=== PATIENT | male | born 1960 | race Caucasian/White ===

== ENCOUNTER 2018-12-13 02:09 | Emergency (ER) | payer OTHER, BC ==
[~2018-12-13] VITALS: Ht 185.4 cm; Wt 101.2 kg
[2018-12-13 03:05] LABS: ABSOLUTE NEUTROPHILS 10.7 thou/uL (1.4-8.2); BASOPHILS 0.4 % (0.0-2.0); EOSINOPHILS 0.4 % (0.0-3.0); HEMATOCRIT 42.8 % (42.0-52.0); LYMPHOCYTES 7.1 % (24.0-44.0); MCH 30.9 pg (26.0-34.0); MCV 88.4 fL (80.0-100.0); MONOCYTES 6.7 % (1.0-8.0); PLATELET COUNT 219 thou/uL (150-400); POLYS 85.4 % (36.0-66.0); RBC 4.85 mil/uL (4.50-6.00); RDW 13.6 % (10.5-14.5); WBC 12.5 thou/uL (4.0-11.0)
[2018-12-13 03:17] LABS: ANION GAP 15 mmol/L (7-16); BUN 40 mg/dL (7-18); CALCIUM 9.3 mg/dL (8.5-10.1); CHLORIDE 97 mmol/L (98-107); CO2 20 mmol/L (21-32); CREATININE 1.5 mg/dL (0.7-1.3); GLUCOSE 271 mg/dL (74-106); POTASSIUM 3.9 mmol/L (3.5-5.1); SODIUM 132 mmol/L (136-145)
[2018-12-13 03:29] LABS: ALBUMIN 4.3 g/dL (3.4-5.0); LIPASE 389 U/L (73-393); SGOT 23 U/L (15-37); SGPT 31 U/L (30-65); TOTAL BILIRUBIN 1.2 mg/dL (<0.1-1.0); TOTAL PROTEIN 8.2 g/dL (6.4-8.2); TROPONIN-I <0.06 ng/mL (<0.06)
[2018-12-13 05:03] LABS: URINE CLARITY TURBID; URINE COLOR RED
[2018-12-13 05:05] LABS: CASTS None Seen /LPF (None Seen); MUCUS None Seen strn/LPF (None Seen); SQUAMOUS None Seen /LPF (0-3)
[2018-12-13 05:06] LABS: BACTERIA-REFLEX None Seen /HPF (None Seen); CRYSTALS None Seen /LPF (None Seen); URINE RBC >20 Many /HPF (0-2); URINE WBC-REFLEX 6-15 Few /HPF (0-5)
[2018-12-13] MEDS ORDERED: IBU600 MG PO (07:28)
[2018-12-13] MEDS ORDERED: FLOMAX0.4 MG PO (07:28)
[2018-12-13] MEDS ORDERED: TRULICITY1.5 MG/0.5 SUBLING (07:28)
[2018-12-13] MEDS ORDERED: LISINOPRIL20 MG PO (07:29)
[2018-12-13] MEDS ORDERED: INVOKANA300 MG PO (07:29)
[2018-12-13] MEDS ORDERED: HYZAAR 100-251 EACH PO (07:29)
[2018-12-13] MEDS ORDERED: GLUCOPHAGE XR500 MG PO (07:29)
--- NOTE | 2018-12-13 08:58 | EKG ---
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: [place] : 1960 Requested By: Charo Bunn Order Number: [id number] MD: Lei Rodriguez Measurements Intervals [place] Rate: 119 P: 14 MS: 157 QRS: 25 QRSD: 107 T: -9 QT: 316 QTc: 445 Interpretive Statements Sinus tachycardia Premature supraventricular complexes Borderline T abnormalities, inferior leads No previous ECG available for comparison Electronically Signed On 12-13-2018 8:58:12 CDT by Lei Rodriguez [email or web address] ��������������������������������������������� <ELECTRONICALLY SIGNED> ���������������������������������������� By: Lei Rordiguez MD, [facility] ��������������������������������������������� 12/13/18 [id number] Lei Rodriguez MD, FACC /EPI
[2018-12-13 10:48] VITALS: BP 131/73
== END 2018-12-13 10:49 | disposition short-term general hospital (02) ==
LOC: ER 02:09
PROVIDERS: Student in an Organized Health Care Education/Training Program
DX: N17.9 Acute kidney failure, unspecified (principal); N13.30 Unspecified hydronephrosis; N39.0 Urinary tract infection, site not specified; K80.20 Calculus of gallbladder without cholecystitis without obstruction; N40.0 Benign prostatic hyperplasia without lower urinary tract symptoms; R16.2 Hepatomegaly with splenomegaly, not elsewhere classified
CPT/HCPCS: 50455; 57160